=== PATIENT | male | born 1945 | race Caucasian/White ===

== ENCOUNTER → 2018-03-03 | Day surgery (SDC) | payer OTHER ==
[~2018-03-03] MED LIST: Lactated Ringers 1,000 ML IV SCH; Propofol 200 MG/20 ML SDV IV ONE
[2018-03-03 09:09] VITALS: BP 125/85
--- NOTE | 2018-03-03 11:02 | OR ---
DATE OF OPERATION: 03/03/2018 PREOPERATIVE DIAGNOSIS: ALTERED BOWEL HABITS. POSTOPERATIVE DIAGNOSIS: ALTERED BOWEL HABITS. SURGEON: Santana Orozco MD PROCEDURE: FULL-LENGTH COLONOSCOPY WITH RANDOM COLON BIOPSIES X6 AND POLYP REMOVAL X3. ANESTHESIA: [employer]GER. COMPLICATIONS: None. SPECIMEN: 1. Random colon biopsies x6. 2. Three small sessile polyps, see dictation. FINDINGS: 1. Full-length colonoscopy. 2. Melanosis coli, mostly right-sided. 3. Sigmoid diverticulosis, mild. 4. Three small sessile tubular adenomas. RECOMMENDATIONS: Medical followup with Dr. Covington in [place]. Recommend routine followup colonoscopy in 5 years given 3 polyps removed. INDICATIONS: The patient has apparently been having altered bowel habits in the form of diarrhea. He was sent for diagnostic colonoscopy. PROCEDURE: The patient was prepped and draped, placed in the left lateral decubitus position. A lubricated olympus colonoscope was inserted and easily advanced to the cecum. We were able to directly visualize the ileocecal valve and appendiceal orifice. The bowel prep was adequate. Upon withdrawal of the scope, the patient has evidence of melanosis coli extending from the cecum to approximately the mid to distal transverse colon. Random biopsies were taken throughout the length of the colon given the patient's diagnosis including the cecum to the rectal vault x6. The patient did have 3 small sessile polyps, first in the proximal ascending colon, a second at the hepatic flexure, and a third near the splenic flexure. All these were small flat sessile polyps, likely hyperplastic in nature and removed in their entirety with forceps. Throughout the left colon, the patient had no other signs of polyps, mass, ulceration, or bleeding sites. No vascular abnormalities or obvious signs of colitis. The patient does have mild sigmoid diverticular disease without any acute inflammatory change. The rectal vault was benign. Retroflexion of scope in the rectum showed no anal lesions. Air was suctioned. Scope removed without complication. SHORTY/STEPHANIE /[id number]
== END ==
LOC: CC.SDS 07:28
PROVIDERS: ATTEND Family Medicine
DX: R19.4 Change in bowel habit (principal); D12.2 Benign neoplasm of ascending colon; D12.3 Benign neoplasm of transverse colon; K57.30 Diverticulosis of large intestine without perforation or abscess without bleeding; F32.9 Major depressive disorder, single episode, unspecified; F41.9 Anxiety disorder, unspecified; G20 Parkinson's disease; I10 Essential (primary) hypertension; E03.9 Hypothyroidism, unspecified; E78.00 Pure hypercholesterolemia, unspecified; Z79.899 Other long term (current) drug therapy
CPT/HCPCS: 45380; J2704; J7120; 00811; 88305

== ENCOUNTER → 2020-01-11 | Day surgery (SDC) | payer OTHER ==
[~2020-01-11] MED LIST changes: +Ketamine 200 MG/20 ML MDV IV ONE; -Lactated Ringers 1,000 ML IV SCH; +fentaNYL 100 MCG/2 ML SDV IV ONE
[2020-01-11] MEDS: Lactated Ringers 1,000 ML IV SCH (08:32)
[2020-01-11 09:52] VITALS: BP 126/68; PULSE 57
--- NOTE | 2020-01-14 09:39 | OR ---
DATE OF OPERATION: 01/11/2020 PREOPERATIVE DIAGNOSIS: NAUSEA. POSTOPERATIVE DIAGNOSIS: NAUSEA. SURGEON: Santana Orozco MD PROCEDURE: DIAGNOSTIC ESOPHAGOGASTRODUODENOSCOPY WITH BIOPSIES X2, PAMELA. ANESTHESIA: MAC. COMPLICATIONS: None. SPECIMEN: 1. Antral biopsy x2. 2. Antral PAMELA. FINDINGS: 1. Full-length EGD. 2. Mild to moderate active gastritis, antrum. RECOMMENDATIONS: Medical followup with Dr. Josselin Covington. INDICATIONS: The patient has chronic abdominal issues, but most notably as of late, has been having some persistent nausea. He was sent for diagnostic EGD. DESCRIPTION OF PROCEDURE: The patient was prepped and draped, placed in the left lateral decubitus position. A lubricated Olympus gastroscope was inserted over a bit, advanced to the cricopharyngeus area and easily intubated in the esophagus. The esophageal lining was completely benign in its entire course. The Z-line was crisp right at 40 cm. There was no obvious hernia seen. No spontaneous reflux, no distal esophagitis, stricturing, ulceration, or Martinez's changes. The scope was advanced into the stomach, through the pylorus and into the second portion of the duodenum. This and the duodenal bulb were grossly benign. The scope was brought back into the stomach and retroflexed. The upper fundus and cardia were unremarkable. No signs of any active peptic ulcer disease in those regions. Upon straightening, the rest of the fundus was benign. The antrum does have some mild to possibly moderate active gastritis mostly in his distal portion. No obvious erosions or ulcerations seen. Two biopsies of the antrum were taken along with a CLOtest. Air was then suctioned from the stomach and the scope was removed without complication. SHORTY/STEPHANIE /[id number]
== END ==
LOC: CC.SDS 08:17
PROVIDERS: ATTEND Family Medicine
DX: K29.70 Gastritis, unspecified, without bleeding (principal); K31.89 Other diseases of stomach and duodenum; F41.9 Anxiety disorder, unspecified; G20 Parkinson's disease; F32.3 Major depressive disorder, single episode, severe with psychotic features; M79.18 Myalgia, other site; G62.9 Polyneuropathy, unspecified; E55.9 Vitamin D deficiency, unspecified; F43.12 Post-traumatic stress disorder, chronic; J30.9 Allergic rhinitis, unspecified; I10 Essential (primary) hypertension; E03.9 Hypothyroidism, unspecified; M54.9 Dorsalgia, unspecified; K44.9 Diaphragmatic hernia without obstruction or gangrene; K21.9 Gastro-esophageal reflux disease without esophagitis; K22.8 Other specified diseases of esophagus; E78.5 Hyperlipidemia, unspecified; H93.19 Tinnitus, unspecified ear; H90.3 Sensorineural hearing loss, bilateral; Z79.899 Other long term (current) drug therapy; Z79.890 Hormone replacement therapy
CPT/HCPCS: 00731; 87081; 88305; J2704; J3010; J7120

== ENCOUNTER → 2022-02-05 | Day surgery (SDC) | payer OTHER ==
[~2022-02-05] MED LIST changes: -Ketamine 200 MG/20 ML MDV IV ONE; +Ketamine 200 MG/20 ML MDV ONE; +Lactated Ringers 1,000 ML IV ONE; +Phenylephrine 1% 10 MG/ML SDV ONE; -Propofol 200 MG/20 ML SDV IV ONE; +Propofol 200 MG/20 ML SDV ONE; -fentaNYL 100 MCG/2 ML SDV IV ONE; +fentaNYL 50 MCG/ML SDV ONE
== END ==
LOC: CC.SDS 06:00
PROVIDERS: ATTEND Family Medicine
DX: D12.2 Benign neoplasm of ascending colon (principal); D12.3 Benign neoplasm of transverse colon; K57.30 Diverticulosis of large intestine without perforation or abscess without bleeding; K64.4 Residual hemorrhoidal skin tags; Z79.899 Other long term (current) drug therapy; Z91.040 Latex allergy status; Z79.890 Hormone replacement therapy; Z90.49 Acquired absence of other specified parts of digestive tract; Z86.010 Personal history of colon polyps
CPT/HCPCS: J2370; J2704; J3010; J7120

== ENCOUNTER 2023-12-03 12:00 | Observation (INO) | payer OTHER, MEDICARE ==
[2023-12-03 12:32] LABS: BASOPHILS ABSOLUTE AUTO 0.03 10^3/uL (0.00-0.50); BASOPHILS PERCENT AUTO 0.3 % (0-1); EOSINOPHILS ABSOLUTE AUTO 0.13 10^3/uL (0.00-1.50); EOSINOPHILS PERCENT AUTO 1.5 % (0-6); HEMATOCRIT 44.5 % (42.0-52.0); HEMOGLOBIN 14.7 g/dL (14.0-18.0); IMMATURE GRAN ABSOLUTE AUTO 0.03 10^3/uL (0.00-0.49); IMMATURE GRAN PERCENT AUTO 0.3 % (0.0-4.9); LYMPHOCYTES ABSOLUTE AUTO 1.35 10^3/uL (0.60-5.00); LYMPHOCYTES PERCENT AUTO 15.6 % (24-44); MEAN CORPUSCULAR HEMOGLOBIN 30.9 pg (27.0-32.0); MEAN CORPUSCULAR VOLUME 93.5 fL (83.0-97.0); MONOCYTES ABSOLUTE AUTO 0.81 10^3/uL (0.00-1.50); MONOCYTES PERCENT AUTO 9.4 % (0-10); NEUTROPHILS ABSOLUTE AUTO 6.29 x10^3/uL (1.80-8.00); NEUTROPHILS PERCENT AUTO 72.9 % (41-71); PLATELET COUNT,PLT 200 10^3/uL (150-400); RED BLOOD CELL COUNT 4.76 x10^6/uL (4.50-6.00); WHITE BLOOD CELL COUNT,WBC 8.6 10^3/uL (4.0-11.0)
[2023-12-03] MEDS ORDERED: Sodium Chloride 0.9% 10 ML Syringe FLUSH PRN (12:32)
[2023-12-03] MEDS: Metoprolol Tartrate 5 MG/5 ML SDV IVPUSH ONE (12:35)
[2023-12-03 12:51] LABS: ALANINE AMINOTRANSFERASE,ALT 25 U/L (12-78); ALBUMIN 3.6 g/dL (3.4-5.0); ALKALINE PHOSPHATASE 62 U/L (46-116); ASPARTATE AMNIOTRANSFERASE,AST 22 U/L (15-37); BILIRUBIN TOTAL 0.6 mg/dL (0.0-1.0); BLOOD UREA NITROGEN,BUN 20 mg/dL (7-18); C-REACTIVE PROTEIN < 0.50 mg/dL (<=0.50); CALCIUM 9.7 mg/dL (8.4-10.1); CARBON DIOXIDE,CO2 28 mmol/L (21-32); CHLORIDE,CL 104 mEq/L (98-106); CREATININE 1.1 mg/dL (0.7-1.3); EST CRCL DRUG DOSING (CG) 58.99 mL/min; ESTIMATED GFR 70 mL/min (>=60); GLUCOSE RANDOM 101 mg/dL (75-99); MAGNESIUM 1.9 mg/dL (1.8-2.4); POTASSIUM,K 4.1 mEq/L (3.5-5.0); PRO B-TYPE NATRIUR PEPT,BNPPRO 3206 pg/mL (0-1000); PROTEIN TOTAL,TP 7.5 g/dL (6.4-8.2); SODIUM,NA 144 mEq/L (136-145)
[2023-12-03] MEDS: Furosemide 40 MG/4 ML VIAL IVPUSH ONE (13:22)
[2023-12-03] MEDS ORDERED: Diclofenac Sodium 1% Gel 100 GM Tube TOP PRN (13:48)
[2023-12-03] MEDS ORDERED: Acetaminophen 325 MG Tab PO PRN (14:23)
[2023-12-03] MEDS ORDERED: Ondansetron 4 MG Tab.DIS PO PRN (14:23)
[2023-12-03] MEDS: Carbidopa/Levodopa 25-100 MG Tab PO SCH (14:34)
[2023-12-03] MEDS: Metoprolol Tartrate 5 MG/5 ML SDV IVPUSH PRN (15:43)
[2023-12-03] MEDS: Ondansetron 4 MG/2 ML SDV IV PRN (15:50)
[2023-12-03] MEDS: Enoxaparin 40 MG/0.4 ML Syringe SUBCUT SCH (19:35)
[2023-12-03] MEDS: Simvastatin 40 MG Tab PO SCH (19:35)
[2023-12-03] MEDS: Potassium Chloride 20 MEQ Tab.ER PO SCH (19:35)
[2023-12-03 19:44] LABS: APPEARANCE,URINE CLEAR (CLEAR); BILIRUBIN,URINE NEGATIVE (NEGATIVE); COLOR,URINE YELLOW (YELLOW); GLUCOSE,URINE NEGATIVE (NEGATIVE); KETONES,URINE NEGATIVE (NEGATIVE); LEUKOCYTE ESTERASE,URINE NEGATIVE (NEGATIVE); NITRITE,URINE NEGATIVE (NEGATIVE); OCCULT BLOOD,URINE NEGATIVE (NEGATIVE); PROTEIN,URINE NEGATIVE (NEGATIVE); UROBILINOGEN,URINE 0.2 EU/dL (0.2-1.0)
[2023-12-04] MEDS: Levothyroxine 50 MCG Tab PO SCH (06:27)
[2023-12-04] MEDS: Levothyroxine 112 MCG Tab PO SCH (06:27)
[2023-12-04 07:00] LABS: BASOPHILS ABSOLUTE AUTO 0.03 10^3/uL (0.00-0.50); BASOPHILS PERCENT AUTO 0.3 % (0-1); EOSINOPHILS ABSOLUTE AUTO 0.18 10^3/uL (0.00-1.50); EOSINOPHILS PERCENT AUTO 1.7 % (0-6); HEMATOCRIT 43.9 % (42.0-52.0); HEMOGLOBIN 14.7 g/dL (14.0-18.0); IMMATURE GRAN ABSOLUTE AUTO 0.03 10^3/uL (0.00-0.49); IMMATURE GRAN PERCENT AUTO 0.3 % (0.0-4.9); LYMPHOCYTES ABSOLUTE AUTO 2.26 10^3/uL (0.60-5.00); LYMPHOCYTES PERCENT AUTO 21.8 % (24-44); MEAN CORPUSCULAR HEMOGLOBIN 30.7 pg (27.0-32.0); MEAN CORPUSCULAR HGB CONC 33.5 g/dL (32.0-36.0); MEAN CORPUSCULAR VOLUME 91.6 fL (83.0-97.0); MONOCYTES ABSOLUTE AUTO 0.78 10^3/uL (0.00-1.50); MONOCYTES PERCENT AUTO 7.5 % (0-10); NEUTROPHILS ABSOLUTE AUTO 7.08 x10^3/uL (1.80-8.00); NEUTROPHILS PERCENT AUTO 68.4 % (41-71); PLATELET COUNT,PLT 203 10^3/uL (150-400); RED BLOOD CELL COUNT 4.79 x10^6/uL (4.50-6.00); WHITE BLOOD CELL COUNT,WBC 10.4 10^3/uL (4.0-11.0)
[2023-12-04] MEDS: Furosemide 20 MG/2 ML VIAL IVPUSH SCH (07:27)
[2023-12-04 07:28] LABS: CALCIUM 9.4 mg/dL (8.4-10.1); CREATININE 1.1 mg/dL (0.7-1.3); EST CRCL DRUG DOSING (CG) 58.99 mL/min; POTASSIUM,K 3.7 mEq/L (3.5-5.0)
[2023-12-04] MEDS: Metoprolol Succinate 100 MG Tab.ER PO SCH (07:29)
[2023-12-04] MEDS: Pantoprazole 40 MG Tab.CR PO SCH (07:29)
[2023-12-04] MEDS: Cholecalciferol (Vitamin D3) 5,000 UNIT Tab PO SCH (07:29)
[2023-12-04] MEDS: Chlorthalidone 25 MG Tab PO SCH (07:30)
[2023-12-04] MEDS: Fluticasone NASAL Spray 16 GM Bottle NASBOTH SCH (07:35)
[2023-12-04] MEDS: Metoprolol Succinate 25 MG Tab.ER PO SCH (08:43)
[2023-12-04] MEDS: hydrOXYzine HCl 25 MG Tab PO PRN (08:43)
[2023-12-04] MEDS: busPIRone 5 MG Tab PO SCH (19:44)
[2023-12-05 07:04] LABS: BASOPHILS ABSOLUTE AUTO 0.05 10^3/uL (0.00-0.50); BASOPHILS PERCENT AUTO 0.5 % (0-1); EOSINOPHILS ABSOLUTE AUTO 0.25 10^3/uL (0.00-1.50); EOSINOPHILS PERCENT AUTO 2.3 % (0-6); HEMATOCRIT 46.3 % (42.0-52.0); HEMOGLOBIN 15.5 g/dL (14.0-18.0); IMMATURE GRAN ABSOLUTE AUTO 0.06 10^3/uL (0.00-0.49); IMMATURE GRAN PERCENT AUTO 0.6 % (0.0-4.9); LYMPHOCYTES ABSOLUTE AUTO 2.41 10^3/uL (0.60-5.00); LYMPHOCYTES PERCENT AUTO 22.3 % (24-44); MEAN CORPUSCULAR HEMOGLOBIN 30.9 pg (27.0-32.0); MEAN CORPUSCULAR HGB CONC 33.5 g/dL (32.0-36.0); MEAN CORPUSCULAR VOLUME 92.2 fL (83.0-97.0); MONOCYTES ABSOLUTE AUTO 0.91 10^3/uL (0.00-1.50); MONOCYTES PERCENT AUTO 8.4 % (0-10); NEUTROPHILS ABSOLUTE AUTO 7.14 x10^3/uL (1.80-8.00); NEUTROPHILS PERCENT AUTO 65.9 % (41-71); PLATELET COUNT,PLT 201 10^3/uL (150-400); RED BLOOD CELL COUNT 5.02 x10^6/uL (4.50-6.00); WHITE BLOOD CELL COUNT,WBC 10.8 10^3/uL (4.0-11.0)
[2023-12-05 07:40] LABS: CALCIUM 9.5 mg/dL (8.4-10.1); CREATININE 1.1 mg/dL (0.7-1.3); EST CRCL DRUG DOSING (CG) 58.99 mL/min; POTASSIUM,K 3.4 mEq/L (3.5-5.0)
[2023-12-05 07:46] VITALS: BP 116/73; PULSE 104
== END 2023-12-05 14:00 | disposition home or self-care (01) ==
LOC: CC.ED 12:00 → UNDOADMOB 13:12 → CC.MS 13:12
PROVIDERS: ADMIT Nurse Practitioner Family; ATTEND Nurse Practitioner Family
DX: I48.91 Unspecified atrial fibrillation (principal); I11.0 Hypertensive heart disease with heart failure; I50.9 Heart failure, unspecified; I25.10 Atherosclerotic heart disease of native coronary artery without angina pectoris; E03.9 Hypothyroidism, unspecified; F41.9 Anxiety disorder, unspecified; R00.2 Palpitations; Z79.899 Other long term (current) drug therapy; Z79.890 Hormone replacement therapy; Z20.822 Contact with and (suspected) exposure to COVID-19
CPT/HCPCS: 36415; 71046; 80048; 80053; 81003; 83735; 83880; 84484; 85025; 86140; 87635; 93005; 93010; 96372; 96374; 96375; 96376; 99285; A9270; G0378; J1650; J1940; J2405; J3490; 99223; 99233; 99238; U0002

== ENCOUNTER 2024-04-20 13:13 | Day surgery (SDC) | payer OTHER ==
[~2024-04-20 13:13] MED LIST changes: -Ketamine 200 MG/20 ML MDV ONE; -Lactated Ringers 1,000 ML IV ONE; -Phenylephrine 1% 10 MG/ML SDV ONE; -Propofol 200 MG/20 ML SDV ONE; +Sodium Chloride 0.9% 250 ML IV SCH; -fentaNYL 50 MCG/ML SDV ONE
[2024-04-20] MEDS: Sodium Chloride 0.9% 250 ML IV SCH (13:25)
[2024-04-20] MEDS ORDERED: Lidocaine 2% 20 ML MDV ONE (14:15)
[2024-04-20] MEDS ORDERED: Propofol 200 MG/20 ML SDV ONE (14:15)
[2024-04-20] MEDS ORDERED: Ketamine 200 MG/20 ML MDV ONE (14:15)
[2024-04-20] MEDS ORDERED: fentaNYL 50 MCG/ML SDV ONE (14:15)
[2024-04-20 15:20] VITALS: BP 110/53; PULSE 55
== END 2024-04-20 15:25 | disposition home or self-care (01) ==
LOC: CC.SDS 13:13
PROVIDERS: ATTEND Family Medicine
DX: K29.50 Unspecified chronic gastritis without bleeding (principal); K31.89 Other diseases of stomach and duodenum; I48.0 Paroxysmal atrial fibrillation; Z79.899 Other long term (current) drug therapy
CPT/HCPCS: 87081; J2704; J3010; J3490; J7050

== ENCOUNTER 2024-08-31 07:30 | Day surgery (SDC) | payer OTHER ==
[2024-08-31] MEDS: Lactated Ringers 1,000 ML IV SCH (07:49)
[2024-08-31] MEDS ORDERED: Ketamine 200 MG/20 ML MDV ONE (08:02)
[2024-08-31] MEDS ORDERED: Propofol 200 MG/20 ML SDV ONE (08:02)
[2024-08-31] MEDS ORDERED: fentaNYL 50 MCG/ML SDV ONE (08:02)
[2024-08-31 09:41] VITALS: BP 112/72; PULSE 70
== END 2024-08-31 09:16 | disposition home or self-care (01) ==
LOC: CC.SDS 07:30
PROVIDERS: ATTEND Family Medicine
DX: D12.3 Benign neoplasm of transverse colon (principal); K57.30 Diverticulosis of large intestine without perforation or abscess without bleeding; I10 Essential (primary) hypertension; E78.00 Pure hypercholesterolemia, unspecified; K21.9 Gastro-esophageal reflux disease without esophagitis; G20.A1 Parkinson's disease without dyskinesia, without mention of fluctuations; I48.0 Paroxysmal atrial fibrillation; E03.9 Hypothyroidism, unspecified; Z79.890 Hormone replacement therapy; Z79.82 Long term (current) use of aspirin; Z79.899 Other long term (current) drug therapy
CPT/HCPCS: 00811; 45380; 88305; 99100; J2704; J3010; J3490; J7120

== ENCOUNTER 2024-09-07 14:42 | Emergency (ER) | payer OTHER ==
[2024-09-07 15:11] LABS: BASOPHILS ABSOLUTE AUTO 0.02 10^3/uL (0.00-0.50); BASOPHILS PERCENT AUTO 0.3 % (0-1); EOSINOPHILS ABSOLUTE AUTO 0.06 10^3/uL (0.00-1.50); EOSINOPHILS PERCENT AUTO 0.8 % (0-6); HEMATOCRIT 41.5 % (42.0-52.0); HEMOGLOBIN 14.3 g/dL (14.0-18.0); IMMATURE GRAN ABSOLUTE AUTO 0.02 10^3/uL (0.00-0.49); IMMATURE GRAN PERCENT AUTO 0.3 % (0.0-4.9); LYMPHOCYTES ABSOLUTE AUTO 1.19 10^3/uL (0.60-5.00); LYMPHOCYTES PERCENT AUTO 16.5 % (24-44); MEAN CORPUSCULAR HEMOGLOBIN 30.4 pg (27.0-32.0); MEAN CORPUSCULAR HGB CONC 34.5 g/dL (32.0-36.0); MEAN CORPUSCULAR VOLUME 88.3 fL (83.0-97.0); MONOCYTES ABSOLUTE AUTO 0.72 10^3/uL (0.00-1.50); NEUTROPHILS ABSOLUTE AUTO 5.21 x10^3/uL (1.80-8.00); NEUTROPHILS PERCENT AUTO 72.1 % (41-71); PLATELET COUNT,PLT 144 10^3/uL (150-400); WHITE BLOOD CELL COUNT,WBC 7.2 10^3/uL (4.0-11.0)
[2024-09-07] MEDS: Alum Hydrox/Mag Hydrox/Simeth 30 ML, Lidocaine 2% 15 ML PO ONE (15:11)
[2024-09-07 15:27] LABS: ALANINE AMINOTRANSFERASE,ALT 33 U/L (12-78); ALBUMIN 3.7 g/dL (3.4-5.0); ALKALINE PHOSPHATASE 48 U/L (46-116); ASPARTATE AMNIOTRANSFERASE,AST 25 U/L (15-37); BLOOD UREA NITROGEN,BUN 27 mg/dL (7-18); CALCIUM 9.1 mg/dL (8.4-10.1); CARBON DIOXIDE,CO2 27 mmol/L (21-32); CHLORIDE,CL 97 mEq/L (98-106); GLUCOSE RANDOM 108 mg/dL (75-99); LIPASE 39 U/L (16-77); POTASSIUM,K 3.2 mEq/L (3.5-5.0); PROTEIN TOTAL,TP 6.9 g/dL (6.4-8.2); SODIUM,NA 134 mEq/L (136-145)
[2024-09-07 15:31] VITALS: BP 126/85; PULSE 93
[2024-09-07 15:33] LABS: C-REACTIVE PROTEIN < 0.50 mg/dL (<=0.50); ESTIMATED GFR 78 mL/min (>=60)
== END 2024-09-07 16:15 | disposition home or self-care (01) ==
LOC: CC.ED 14:42
DX: R10.13 Epigastric pain (principal); I10 Essential (primary) hypertension; I25.10 Atherosclerotic heart disease of native coronary artery without angina pectoris; E03.9 Hypothyroidism, unspecified; Z79.899 Other long term (current) drug therapy; Z79.51 Long term (current) use of inhaled steroids; Z79.890 Hormone replacement therapy; Z79.02 Long term (current) use of antithrombotics/antiplatelets; Z79.82 Long term (current) use of aspirin; Z90.49 Acquired absence of other specified parts of digestive tract
CPT/HCPCS: 36415; 71046; 80053; 83690; 84484; 85025; 86140; 93005; 93010; 99284; 99285; A9270-GY

== ENCOUNTER 2024-12-09 20:54 | Emergency (ER) | payer OTHER ==
[2024-12-09 21:12] VITALS: BP 137/90; PULSE 95
[2024-12-09] MEDS ORDERED: Sodium Chloride 0.9% 10 ML Syringe FLUSH PRN (21:31)
[2024-12-09 21:35] LABS: APPEARANCE,URINE CLEAR (CLEAR); GLUCOSE,URINE NEGATIVE (NEGATIVE); OCCULT BLOOD,URINE NEGATIVE (NEGATIVE)
[2024-12-09 21:37] LABS: BASOPHILS ABSOLUTE AUTO 0.02 10^3/uL (0.00-0.50); BASOPHILS PERCENT AUTO 0.2 % (0-1); EOSINOPHILS ABSOLUTE AUTO 0.07 10^3/uL (0.00-1.50); EOSINOPHILS PERCENT AUTO 0.8 % (0-6); IMMATURE GRAN ABSOLUTE AUTO 0.02 10^3/uL (0.00-0.49); IMMATURE GRAN PERCENT AUTO 0.2 % (0.0-4.9); LYMPHOCYTES ABSOLUTE AUTO 1.49 10^3/uL (0.60-5.00); LYMPHOCYTES PERCENT AUTO 18.1 % (24-44); MONOCYTES ABSOLUTE AUTO 0.87 10^3/uL (0.00-1.50); MONOCYTES PERCENT AUTO 10.6 % (0-10); NEUTROPHILS ABSOLUTE AUTO 5.77 x10^3/uL (1.80-8.00); NEUTROPHILS PERCENT AUTO 70.1 % (41-71); PLATELET COUNT,PLT 141 10^3/uL (150-400); RED BLOOD CELL COUNT 4.39 x10^6/uL (4.50-6.00); WHITE BLOOD CELL COUNT,WBC 8.2 10^3/uL (4.0-11.0)
[2024-12-09] MEDS: Ondansetron 4 MG/2 ML SDV IVPUSH STA (21:41)
[2024-12-09 21:44] LABS: SQUAMOUS EPITHELIAL CELLS,UR OCCASIONAL /HPF (NOT SEEN)
[2024-12-09 21:54] LABS: ALANINE AMINOTRANSFERASE,ALT 24 U/L (12-78); ASPARTATE AMNIOTRANSFERASE,AST 20 U/L (15-37); BILIRUBIN TOTAL 1.0 mg/dL (0.0-1.0); BLOOD UREA NITROGEN,BUN 22 mg/dL (7-18); CARBON DIOXIDE,CO2 26 mmol/L (21-32); CHLORIDE,CL 104 mEq/L (98-106); CREATININE 1.1 mg/dL (0.7-1.3); EST CRCL DRUG DOSING (CG) 58.07 mL/min; ESTIMATED GFR 69 mL/min (>=60); GLUCOSE RANDOM 94 mg/dL (75-99); POTASSIUM,K 3.5 mEq/L (3.5-5.0); PROTEIN TOTAL,TP 6.9 g/dL (6.4-8.2); SODIUM,NA 142 mEq/L (136-145)
[2024-12-09] MEDS: Alum Hydrox/Mag Hydrox/Simeth 30 ML, Lidocaine 2% 15 ML PO ONE (22:05)
[2024-12-09] MEDS: Iopamidol 755 Mg/ML 100 ML Bottle IVPUSH ONE (22:40)
== END 2024-12-10 00:16 | disposition home or self-care (01) ==
LOC: CC.ED 20:54
DX: R10.10 Upper abdominal pain, unspecified (principal); I25.10 Atherosclerotic heart disease of native coronary artery without angina pectoris; I10 Essential (primary) hypertension; E03.9 Hypothyroidism, unspecified; Z90.49 Acquired absence of other specified parts of digestive tract; Z79.899 Other long term (current) drug therapy
CPT/HCPCS: 36415; 74177; 80053; 81001; 83690; 83735; 85025; 86140; 96361; 96374; 96375; 99284; 99284-25; A9270-GY; J1171; J2405; J7040; Q9967